=== PATIENT | female | born 1965 | race American Indian/Alaskan Native ===

== ENCOUNTER 2017-02-04 10:23 | Emergency (ER) | payer BC ==
[2017-02-04 11:02] VITALS: BP 134/72
[2017-02-04 11:12] LABS: Alanine Aminotransferase 92 units/L (7-56); Albumin 3.9 g/dL (3.9-5); Albumin/Globulin Ratio 0.9 %; Alkaline Phosphatase 109 units/L (35-129); Anion Gap 16 mmol/L; BUN/Creatinine Ratio 14.28; Blood Urea Nitrogen 10 mg/dL (7-17); Calcium 9.5 mg/dL (8.4-10.2); Carbon Dioxide 28 mmol/L (22-30); Chloride 101.6 mmol/L (98-107); Glucose 128 mg/dL (65-100); Lipase 32 units/L (13-60); Potassium 4.8 mmol/L (3.6-5.0); Sodium 141 mmol/L (137-145); Total Protein 8.3 g/dL (6.3-8.2)
[2017-02-04 11:13] LABS: Basophils % (Auto) 0.8 % (0.0-1.8); Eosinophils % (Auto) 2.3 % (0.0-4.3); Hematocrit 38.2 % (30.3-42.9); Hemoglobin 12.8 gm/dl (10.1-14.3); Mean Corpuscular HGB Conc 34 % (30-34); Mean Corpuscular Hemoglobin 28 pg (28-32); Mean Corpuscular Volume 84 fl (79-97); Platelet Count 232 K/mm3 (140-440); Red Blood Count 4.54 M/mm3 (3.65-5.03); Red Cell Distribution Width 13.4 % (13.2-15.2); White Blood Count 8.8 K/mm3 (4.5-11.0)
[2017-02-04] MEDS ORDERED: PEPCID PO ONE (11:20)
--- NOTE | 2017-02-04 11:26 | Emergency Department Report ---
ED Abdominal Pain HPI - General Chief Complaint: Abdominal Pain Stated Complaint: STOMACH PAIN Time Seen by Provider: 02/04/17 10:56 Source: patient, RN notes reviewed Mode of arrival: Ambulatory Limitations: No Limitations - History of Present Illness Initial Comments: 51-year-old female presents to the emergency department complaining of abdominal pain and acid reflux. Patient reports mild upper abdominal pain that does not radiate. She reports having difficulty keeping food down. She reports a constant acid taste in her mouth. Her symptoms have been getting worse over the past 2-3 months. Patient reports a history of acid reflux and states that her insurance was no longer pain for her Nexium. She has been off this medication for several years. Patient also reports some difficulty with bowel movements, but states taking milk of magnesia relieves the symptoms. There are no other complaints. MD Complaint: abdominal pain -: Gradual, month(s) (3) Location: epigastric Radiation: none Migration to: no migration Severity scale (0 -10): 5 Quality: burning Consistency: intermittent Improves With: nothing Worsens With: eating Associated Symptoms: nausea, vomiting - Related Data Home Medications Medication Instructions Recorded Confirmed Last Taken Lisinopril [Zestril] 2.5 mg PO QDAY 01/27/14 01/27/14 01/27/14 09:00 Previous Rx's Medication Instructions Recorded Last Taken Type Cyclobenzaprine [Flexeril] 10 mg PO TID PRN #14 tablet 01/27/14 Unknown Rx Ibuprofen [Motrin] 800 mg PO Q8H PRN #20 tablet 01/27/14 Unknown Rx Amoxicillin/K Clav Tab [Augmentin 1 tab PO BID #20 tablet 07/02/14 Unknown Rx 875MG] Fluticasone Propionate [Flonase] 2 sprays NS QDAY #1 spray 07/02/14 Unknown Rx Loratadine [Claritin] 10 mg PO DAILY #30 tablet 07/02/14 Unknown Rx Promethazine /Codeine 5 ml PO Q6H PRN #150 ml 07/02/14 Unknown Rx [Phenergan/Codeine 6.25-10 mg/5 ml] predniSONE [Deltasone] 50 mg PO QDAY #5 tab 07/02/14 Unknown Rx Omeprazole 40 mg PO QDAY #30 capsule. 02/04/17 Unknown Rx Allergies Allergy/AdvReac Type Severity Reaction Status Date / Time hydromorphone HCl Allergy Headache Verified 01/27/14 12:24 [From Dilaudid] ED Review of Systems ROS: Stated complaint: STOMACH PAIN Other details as noted in HPI Comment: All other systems reviewed and negative Gastrointestinal: abdominal pain, nausea, vomiting ED Past Medical Hx - Past Medical History Previous Medical History?: Yes Hx Hypertension: Yes Hx Diabetes: (Pre diabetes) Hx GERD: Yes - Surgical History Past Surgical History?: Yes Hx Cholecystectomy: Yes Hx Breast Surgery: Yes Additional Surgical History: Breast reduction - Family History Family history: no significant - Social History Smoking Status: Never Smoker Substance Use Type: Alcohol, Prescribed, Other - Medications Home Medications: Home Medications Medication Instructions Recorded Confirmed Last Taken Type Cyclobenzaprine [Flexeril] 10 mg PO TID PRN #14 tablet 01/27/14 Unknown Rx Ibuprofen [Motrin] 800 mg PO Q8H PRN #20 tablet 01/27/14 Unknown Rx Lisinopril [Zestril] 2.5 mg PO QDAY 01/27/14 01/27/14 01/27/14 09:00 History Amoxicillin/K Clav Tab [Augmentin 1 tab PO BID #20 tablet 07/02/14 Unknown Rx 875MG] Fluticasone Propionate [Flonase] 2 sprays NS QDAY #1 spray 07/02/14 Unknown Rx Loratadine [Claritin] 10 mg PO DAILY #30 tablet 07/02/14 Unknown Rx Promethazine /Codeine 5 ml PO Q6H PRN #150 ml 07/02/14 Unknown Rx [Phenergan/Codeine 6.25-10 mg/5 ml] predniSONE [Deltasone] 50 mg PO QDAY #5 tab 07/02/14 Unknown Rx Omeprazole 40 mg PO QDAY #30 capsule. 02/04/17 Unknown Rx ED Physical Exam - General Limitations: No Limitations General appearance: alert, in no apparent distress - Head Head exam: Present: atraumatic, normocephalic - Eye Eye exam: Present: normal appearance, PERRL, EOMI - ENT ENT exam: Present: normal exam, normal orophraynx, mucous membranes moist - Neck Neck exam: Present: normal inspection, full ROM. Absent: tenderness - Respiratory Respiratory exam: Present: normal lung sounds bilaterally. Absent: respiratory distress - Cardiovascular Cardiovascular Exam: Present: regular rate, normal rhythm, normal heart sounds - GI/Abdominal GI/Abdominal exam: Present: soft, tenderness (mild epigastric tenderness to palpation), normal bowel sounds. Absent: distended, guarding, rebound - Extremities Exam Extremities exam: Present: normal inspection, full ROM. Absent: tenderness - Back Exam Back exam: Present: normal inspection, full ROM. Absent: tenderness - Neurological Exam Neurological exam: Present: alert, oriented X3. Absent: motor sensory deficit - Skin Skin exam: Present: warm, dry, intact ED Course Vital Signs 02/04/17 02/04/17 02/04/17 10:29 11:01 11:02 Temperature 97.3 F L 97.8 F Pulse Rate 64 58 L Respiratory 20 14 14 Rate Blood Pressure 143/87 Blood Pressure 134/72 [Left] O2 Sat by Pulse 96 98 98 Oximetry ED Medical Decision Making - Lab Data Result diagrams: 02/04/17 10:39 02/04/17 10:39 - Radiology Data Radiology results: report reviewed Abdominal ultrasound reveals evidence of fatty liver. There are no other acute abnormalities. - Medical Decision Making Lab and imaging results reviewed and discussed with the patient. Patient will be discharged home at this time to follow up with gastroenterology. - Differential Diagnosis PUD, gastritis, GERD, pancreatitis Critical care attestation.: If time is entered above; I have spent that time in minutes in the direct care of this critically ill patient, excluding procedure time. ED Disposition Clinical Impression: GERD (gastroesophageal reflux disease) Qualifiers: Esophagitis presence: without esophagitis Qualified Code(s): K21.9 - Gastro- esophageal reflux disease without esophagitis Disposition: DISCHARGED TO HOME OR SELFCARE Is pt being admited?: No Condition: Stable Instructions: Gastroesophageal Reflux Disease (ED) Additional Instructions: Take all medications as directed. Be sure to follow up with the book reviewer. If symptoms worsen, or new symptoms develop, return to the emergency department. Prescriptions: Omeprazole 40 mg PO QDAY #30 capsule.dr Referrals: RUTH ANN JARAMILLO MD [Staff Physician] - 3-5 Days Time of Disposition: 12:47
[2017-02-04 11:29] LABS: Bilirubin,Urine NEG (Negative); Blood,Urine NEG (Negative); Ketones,Urine NEG (Negative); Leukocyte Esterase,Urine NEG (Negative); Mucus,Urine FEW /HPF; Nitrite,Urine NEG (Negative); Protein,Urine <15 mg/dL mg/dL (Negative); RBC,Urine < 1.0 /HPF (0.0-6.0); Urobilinogen,Urine < 2.0 mg/dL (<2.0)
--- NOTE | 2017-02-04 12:32 | Ultrasound Report ---
Sonogram right upper quadrant: History: Upper abdominal pain. Elevated LFTs. History of cholecystectomy. Findings: Normal aorta and inferior vena cava. Fatty liver. No intrahepatic duct dilatation. Common bile duct diameter 5.4 mm. Patient status post cholecystectomy. Right kidney 11.5 x 3.7 x 5.5 cm. Cortical thickness 1.1 cm. No mass. No hydronephrosis. Pancreas partially obscured by bowel gas. Impression: Fatty liver.
== END 2017-02-04 12:55 | disposition home or self-care (01) ==
LOC: ED 10:23
DX: K21.9 Gastro-esophageal reflux disease without esophagitis (principal); I10 Essential (primary) hypertension; Z90.49 Acquired absence of other specified parts of digestive tract; Z88.8 Allergy status to other drugs, medicaments and biological substances
CPT/HCPCS: 36415; 76705; 80053; 81001; 83690; 85025